=== PATIENT | female | born 1975 | race African-American/Black ===

== ENCOUNTER 2022-12-16 09:18 | Emergency (ER) | payer BC, OTHER ==
[2022-12-16] MEDS ORDERED: Loratadine 10 MG TAB PO SCH (11:00)
[2022-12-16] MEDS ORDERED: Pseudoephedrine HCl 30 MG TAB PO SCH (11:00)
[2022-12-16 11:28] LABS: SARS-CoV-2 NAA Rapid Test Not Detected (NotDetected)
== END 2022-12-16 13:08 | disposition home or self-care (01) ==
LOC: CSHERS 09:18
DX: G44.89 Other headache syndrome (principal); J01.90 Acute sinusitis, unspecified; Z20.822 Contact with and (suspected) exposure to COVID-19
CPT/HCPCS: 99284

== ENCOUNTER 2025-03-23 10:14 | Outpatient (CLI) | payer BC | END 2025-03-23 10:15 | disposition home or self-care (01) | LOC: CSHRAD 10:14 | DX: M79.671 Pain in right foot (principal); M77.51 Other enthesopathy of right foot and ankle ==